=== PATIENT | female | born 1955 | race Caucasian/White ===

== ENCOUNTER 2016-12-11 20:26 | Emergency (ER) | payer MEDICARE, OTHER ==
[~2016-12-11] VITALS: Ht 167.6 cm; Wt 63.6 kg
[~2016-12-11 20:26] MED LIST: ALAVERT10 M1 PO; ALEVE 220MG220 MG PO; AMITRIPTYLINE25 MG PO; ANORO IH; ATIVAN 0.50.5 MG/TAB PO; ATIVAN0.5 MG PO; ATIVAN2 MG PO; ATROVENT INHALE14 GM IH; BACLOFEN20 MG PO; BENADRYL25 M2; BENADRYL25 M2 PO; BUPIVACAINE HCL IT; CARVEDILOL25 MG PO; COMBIVENT INH14.7 GM IH; COREG 25MG25 MG/TAB PO; COREG 3.123.125 MG/T PO; COREG12.5 MG PO; COREG25 MG PO; DEPAKOTE 125MG125 MG PO; DOXYCYCLINE 10100 MG PO; EFFEXOR 75M75 MG/TAB PO; EFFEXOR XR37.5 MG PO; EFFEXOR XR75 MG/CAP PO; FLAGYL500 MG PO; FOLIC ACID 11 MG/TA1 PO; FORADIL AERO0.012 MG IH; GABAPENTIN300 MG PO; GABAPENTIN600 MG PO; GEODON 20M20 MG/VIAL IM; HALDOL 2MG T2 MG/TAB PO; HCTZ 25MG25 MG PO; HCTZ PO; HYGROTON25 MG PO; IPRATROPIUM BROM3 M1 IH; K-DUR 2020 MEQ PO; K-LOR CON PO; K-TAB20 PO; KEPPRA 500MG500 MG PO; KLOR-CON M2020 MEQ PO; LEVAQUIN 5500 MG/TA1 PO; LEVAQUIN 750MG750 M1 PO; LIORESAL 1010 MG/TAB PO; LIORESAL I500 MCG/ML IT; LISINOPRIL10 MG PO; LISINOPRIL20 MG PO; LORTAB 5/500 501 TAB PO; MAALOX MAX + ANT1 ML PO; MACRODANTIN100 PO; MAG-OX 400400 MG/TAB PO; MAGOX 400241.3 MG PO; MELAT3MGTAB; MILK OF MA400 MG/51 PO; MORP4 IT; MORPHINE PO; MORPHINE10 MG PO; MS CONTIN 330 MG/TAB PO; MS CONTIN15 MG PO; MYLANTA 150 ML150 M1 PO; NAPROSYN500 MG PO; NATURAL IRON65 MG PO; NEURONTIN300 MG/CAP PO; NEURONTIN600 MG/TAB PO; NEURONTIN800 MG/TAB PO; NICODERM C21 MG/PATC TD; NICODERM21 MG/24 H TD; NORCO 325 MG-51 TAB PO; NORCO 325 MG-7.1 TAB PO; NYSTATIN OR100 MU/ML PO; OXYCODONE HCL10 MG PO; OXYCODONE10 MG PO; OXYCODONE5 MG PO; PEPCID 20MG TAB20 MG PO; PERCOCET 325 MG1 TA2 PO; PERFOROMIS20 MCG/2 M IH; PREDNISONE20 MG PO; PREMARIN 0.9MG0.9 MG PO; PREMARIN0.3 MG PO; PREMARIN0.9 MG PO; PULMICORT0.5 MG/2 M IH; RISPERDAL 1M1 MG/TAB PO; ROXICODONE5 MG PO; RT SPIRIVA18 MCG IH; SEE INSTRUCTIONS IT; SEROQUEL 1100 MG/TAB PO; SIMVASTATIN20 MG PO; SINGULAIR10 MG PO; THERAGRAN TAB1 UDTAB PO; THIAMINE 1100 MG/TAB PO; TYLENOL 325MG325 MG PO; ULTRAM 50MG TAB50 MG PO; UNABLE; VALIUM 5MG T5 MG/TAB PO; VITAMIN C500 MG PO; ZESTRIL10 MG PO; ZOCOR 20MG20 MG PO; ZOCOR20 MG PO
[2016-12-11 20:35] VITALS: TEMP 98.2
[2016-12-11] MEDS ORDERED: DOXYCYCLINE 10100 MG PO (21:10)
[2016-12-11 21:37] VITALS: BP 116/83; PULSE 86
== END 2016-12-11 21:37 | disposition home or self-care (01) ==
LOC: COL.ER 20:26
DX: S81.812A Laceration without foreign body, left lower leg, initial encounter (principal); Z23 Encounter for immunization; W22.8XXA Striking against or struck by other objects, initial encounter; W07.XXXA Fall from chair, initial encounter; I10 Essential (primary) hypertension; J44.9 Chronic obstructive pulmonary disease, unspecified; F10.20 Alcohol dependence, uncomplicated

== ENCOUNTER → 2017-01-05 | Outpatient (CLI) | payer MEDICARE, OTHER | LOC: BHSO 13:41 | DX: F31.74 Bipolar disorder, in full remission, most recent episode manic (principal) ==

== ENCOUNTER → 2017-06-20 | Outpatient (CLI) | payer MEDICARE, OTHER | LOC: BHSO 11:00 | DX: F31.73 Bipolar disorder, in partial remission, most recent episode manic (principal) ==

== ENCOUNTER → 2017-07-27 | Outpatient (CLI) | payer MEDICARE, OTHER | LOC: MC.RAD 10:49 | DX: Z12.31 Encounter for screening mammogram for malignant neoplasm of breast (principal) ==

== ENCOUNTER 2017-12-07 08:15 | Outpatient (RCR) | payer MEDICARE, OTHER | END 2017-12-12 | disposition home or self-care (01) | LOC: MKS.ESL.PT | DX: R53.81 Other malaise (principal); M54.12 Radiculopathy, cervical region | CPT/HCPCS: G8978-GP; G8979-GP ==

== ENCOUNTER 2017-12-21 02:12 | Inpatient (IN) | payer MEDICARE ==
[2017-12-21] VITALS (7 sets, daily range): BP systolic 102–181; BP diastolic 56–84; PULSE 58–113; TEMP 97.9–99.3
[~2017-12-21] VITALS: Ht 165.1 cm; Wt 51.4 kg
[2017-12-21 02:44] LABS: ARTERIAL BLD GAS O2 SATURATION 91.1 % (92-100); ARTERIAL BLD GAS TCO2 CT 31.8; ARTERIAL BLOOD GAS BASE EXCESS 5.5 (-2-2); ARTERIAL BLOOD GAS HCO3 30.4 meq/L (22-26); ARTERIAL BLOOD GAS PCO2 46.5 mmHg (35-45); ARTERIAL BLOOD GAS pH 7.43 (7.35-7.45)
[2017-12-21 02:45] LABS: MEAN CELL VOLUME 100 fl (80.0-100.0); MEAN CORPUSCULAR HGB CONC 32 g/dl (33.0-37.0); MEAN PLATELET VOLUME 10.4 fl (7.4-10.4); PLATELET COUNT 180 K/mm3 (130-400); RED BLOOD COUNT 2.61 M/mm3 (4.10-5.30); REDCELL DISTRIBUTION WIDTH-CV 12.8 % (11.5-14.5)
[2017-12-21 02:46] LABS: HEMATOCRIT 26.2 % (37.0-47.0); HEMOGLOBIN 8.3 g/dl (12.5-16.0); MEAN CORPUSCULAR HEMOGLOBIN 32 pg (27.0-31.0)
[2017-12-21 02:53] LABS: ALBUMIN 3.3 gm/dL (3.5-5.0); BILIRUBIN,TOTAL 0.4 mg/dL (0.0-1.0); CALCIUM 9.9 mg/dL (8.4-10.2); CREATININE, serum 0.43 mg/dL (0.52-1.25); POTASSIUM 3.7 mmol/L (3.4-5.0); TOTAL PROTEIN 6.3 gm/dL (6.4-8.2)
[2017-12-21 03:01] LABS: BAND 39 % (0-10); LYMPHOCYTE 7 % (20.0-51.0); METAMYELOCYTE 1 % (0-0); NEUTROPHILS 52 % (42.0-75.2); PLATELET ESTIMATE NORMAL (NORMAL)
[2017-12-21 03:26] LABS: COLLECTION METHOD CLEAN CATCH
[2017-12-21 03:33] LABS: AMORPHOUS CRYSTAL Present /uL; PH 8 (5-8); SQUAMOUS EPITHELIAL 0-2 /hpf; URINE APPEARANCE Cloudy; URINE BACTERIA Rare /hpf; URINE BILIRUBIN Negative (NEGATIVE); URINE BLOOD Negative (NEGATIVE); URINE COLOR Yellow; URINE GLUCOSE Negative (NEGATIVE); URINE KETONE Negative (NEGATIVE); URINE LEUKOCYTE ESTERASE Negative (NEGATIVE); URINE NITRATE Negative (NEGATIVE); URINE PROTEIN(semi-quant) Negative (NEGATIVE); URINE RBC 0-2 /hpf; URINE UROBILINOGEN Negative (NEGATIVE)
[2017-12-22 00:52] LABS: FOLATE (FOLIC ACID) 18.2 ng/mL (7.0-31.4)
[2017-12-22 04:03] VITALS: BP 104/60; PULSE 90; TEMP 98.2
[2017-12-22 07:04] LABS: MEAN CELL VOLUME 100 fl (80.0-100.0); MEAN CORPUSCULAR HGB CONC 31 g/dl (33.0-37.0); MEAN PLATELET VOLUME 10.3 fl (7.4-10.4); PLATELET COUNT 168 K/mm3 (130-400); RED BLOOD COUNT 2.41 M/mm3 (4.10-5.30)
[2017-12-22 07:09] LABS: HEMOGLOBIN 7.5 g/dl (12.5-16.0); MEAN CORPUSCULAR HEMOGLOBIN 31 pg (27.0-31.0)
[2017-12-22 07:16] LABS: BILIRUBIN,TOTAL 0.3 mg/dL (0.0-1.0); CALCIUM 9.8 mg/dL (8.4-10.2); CREATININE, serum 0.36 mg/dL (0.52-1.25); POTASSIUM 3.9 mmol/L (3.4-5.0); TOTAL PROTEIN 5.6 gm/dL (6.4-8.2)
[2017-12-22 07:42] LABS: BAND 38 % (0-10); DOHLE BODIES PRESENT; HYPOCHROMIA 2+; LYMPHOCYTE 11 % (20.0-51.0); METAMYELOCYTE 1 % (0-0); NEUTROPHILS 49 % (42.0-75.2); PLATELET ESTIMATE NORMAL (NORMAL)
[2017-12-22 07:43] LABS: TOXIC GRANULATION PRESENT
[2017-12-22 08:10] VITALS: BP 109/64; PULSE 92; TEMP 98.3
[2017-12-22 11:20] LABS: LACTATE DEHYDROGENASE 390 U/L (313-618)
[2017-12-22 11:32] VITALS: BP 119/74; PULSE 99; TEMP 98.8
[2017-12-22 15:28] VITALS: BP 138/71; PULSE 97; TEMP 99
[2017-12-22 18:55] VITALS: BP 154/87; PULSE 103; TEMP 98.5
[2017-12-22 23:40] VITALS: BP 105/55; PULSE 85; TEMP 98
[2017-12-23 03:52] VITALS: BP 96/60; PULSE 87; TEMP 97.6
[2017-12-23 06:29] LABS: MEAN CELL VOLUME 101 fl (80.0-100.0); MEAN CORPUSCULAR HGB CONC 31 g/dl (33.0-37.0); MEAN PLATELET VOLUME 10.4 fl (7.4-10.4); PLATELET COUNT 183 K/mm3 (130-400); RED BLOOD COUNT 2.51 M/mm3 (4.10-5.30); REDCELL DISTRIBUTION WIDTH-CV 13.3 % (11.5-14.5)
[2017-12-23 06:37] LABS: HEMATOCRIT 25.3 % (37.0-47.0); HEMOGLOBIN 7.9 g/dl (12.5-16.0); MEAN CORPUSCULAR HEMOGLOBIN 31 pg (27.0-31.0)
[2017-12-23 06:44] LABS: CALCIUM 10.2 mg/dL (8.4-10.2); CREATININE, serum 0.39 mg/dL (0.52-1.25); POTASSIUM 3.9 mmol/L (3.4-5.0)
[2017-12-23 07:26] LABS: INR 1.1 (0.8-3.0); PROTHROMBIN TIME 12.1 SECONDS (9.7-12.8)
[2017-12-23 07:41] LABS: BAND 33 % (0-10); BASOPHIL 1 % (0-2); LYMPHOCYTE 21 % (20.0-51.0); NEUTROPHILS 40 % (42.0-75.2); PLATELET ESTIMATE NORMAL (NORMAL)
[2017-12-23 07:42] LABS: METAMYELOCYTE 3 % (0-0)
[2017-12-23 07:43] LABS: TOXIC GRANULATION PRESENT
[2017-12-23 07:50] VITALS: BP 107/69; PULSE 85; TEMP 97.7
[2017-12-23 10:59] LABS: GLUCOSE,PLEURAL FLUID 97 mg/dL; TOTAL PROTEIN,PLEURAL FLUID 2.7 gm/dL
[2017-12-23 11:10] LABS: PLEURAL FLUID RBC 4000 /mm3 (0-0); PLEURAL FLUID WBC 1484 /mm3
[2017-12-23 11:12] LABS: PLEURAL FLUID APPEARANCE HAZY; PLEURAL FLUID COLOR YELLOW
[2017-12-23 11:42] VITALS: BP 113/63; PULSE 104; TEMP 97.8
[2017-12-23 16:00] VITALS: BP 116/75; PULSE 102; TEMP 99
[2017-12-23 19:00] VITALS: BP 134/73; PULSE 99; TEMP 98.8
[2017-12-24 00:16] VITALS: BP 103/59; PULSE 92; TEMP 98.6
[2017-12-24 04:17] VITALS: BP 97/56; PULSE 78; TEMP 97.9
[2017-12-24 07:00] LABS: MEAN CELL VOLUME 102 fl (80.0-100.0); MEAN CORPUSCULAR HGB CONC 31 g/dl (33.0-37.0); MEAN PLATELET VOLUME 10.5 fl (7.4-10.4); PLATELET COUNT 201 K/mm3 (130-400); RED BLOOD COUNT 2.77 M/mm3 (4.10-5.30); REDCELL DISTRIBUTION WIDTH-CV 13.7 % (11.5-14.5)
[2017-12-24 07:02] LABS: HEMATOCRIT 28.2 % (37.0-47.0); HEMOGLOBIN 8.8 g/dl (12.5-16.0); MEAN CORPUSCULAR HEMOGLOBIN 32 pg (27.0-31.0)
[2017-12-24 07:18] LABS: CALCIUM 10.2 mg/dL (8.4-10.2); CREATININE, serum 0.46 mg/dL (0.52-1.25); POTASSIUM 3.9 mmol/L (3.4-5.0)
[2017-12-24 08:01] VITALS: BP 121/69; PULSE 100; TEMP 98.2
[2017-12-24 09:48] LABS: BAND 28 % (0-10); EOSINOPHIL 1 % (0-4); LYMPHOCYTE 19 % (20.0-51.0); NEUTROPHILS 42 % (42.0-75.2); TOXIC GRANULATION PRESENT
[2017-12-24 09:50] LABS: PLATELET ESTIMATE NORMAL (NORMAL)
[2017-12-24 11:53] VITALS: BP 110/63; PULSE 91; TEMP 98.5
[2017-12-24] MEDS ORDERED: LEVAQUIN 5500 MG/TA1 PO (12:15)
== END 2017-12-24 15:25 | disposition home health service (06) | DRG 871 ==
LOC: COL.ER 02:12 → MEDICAL 03:19
PROVIDERS: Family Medicine; Internal Medicine Pulmonary Disease; Nurse Practitioner Family; Physician Assistant
PROC: 0W9B3ZX Drainage of Left Pleural Cavity, Percutaneous Approach, Diagnostic (ICD-10-PCS; principal; 2017-12-23)
DX: A41.9 Sepsis, unspecified organism (principal); J18.9 Pneumonia, unspecified organism; J96.22 Acute and chronic respiratory failure with hypercapnia; J44.0 Chronic obstructive pulmonary disease with (acute) lower respiratory infection; J44.1 Chronic obstructive pulmonary disease with (acute) exacerbation; C34.11 Malignant neoplasm of upper lobe, right bronchus or lung; R64 Cachexia; Z68.1 Body mass index [BMI] 19.9 or less, adult; J90 Pleural effusion, not elsewhere classified; I10 Essential (primary) hypertension; Z87.891 Personal history of nicotine dependence
CPT/HCPCS: 99232-AI; 99233-AI; 99239; G0378; G8978-GP; G8979-GP; G8987-GO; G8988-GO; J1650; J2185; J3370; J7030; J7050

== ENCOUNTER → 2018-01-20 | Outpatient (CLI) | payer MEDICARE ==
[~2018-01-20] MED LIST changes: +DUO-KAPS1 CAP PO; +OMNICEF 300MG300 MG PO; +PROAIR HFA0.09 MG/AC IH
== END ==
LOC: COL.LAB 12:50
DX: Z01.89 Encounter for other specified special examinations (principal)

== ENCOUNTER 2018-01-21 10:02 | Outpatient (RCR) | payer MEDICARE ==
[2018-01-21] VITALS (12 sets, daily range): BP systolic 106–131; BP diastolic 60–79; PULSE 81–98; TEMP 98–98.2
== END 2018-01-21 18:00 | disposition home or self-care (01) ==
LOC: EUO 18:00
DX: C34.32 Malignant neoplasm of lower lobe, left bronchus or lung (principal)
CPT/HCPCS: J7050; P9016

== ENCOUNTER 2018-01-24 16:38 | Emergency (ER) | payer MEDICARE, OTHER ==
[~2018-01-24] VITALS: Ht 165.1 cm; Wt 50.0 kg
[2018-01-24 16:43] VITALS: TEMP 99.3
[2018-01-24 17:07] LABS: HEMOGLOBIN 10.7 g/dl (12.5-16.0); MEAN CELL VOLUME 95 fl (80.0-100.0); MEAN CORPUSCULAR HEMOGLOBIN 30 pg (27.0-31.0); MEAN CORPUSCULAR HGB CONC 32 g/dl (33.0-37.0); MEAN PLATELET VOLUME 9.2 fl (7.4-10.4); PLATELET COUNT 242 K/mm3 (130-400); RED BLOOD COUNT 3.55 M/mm3 (4.10-5.30); REDCELL DISTRIBUTION WIDTH-CV 14.2 % (11.5-14.5)
[2018-01-24 17:21] LABS: ALBUMIN 3.7 gm/dL (3.5-5.0); BILIRUBIN,TOTAL 0.1 mg/dL (0.0-1.0); CREATININE, serum 0.5 mg/dL (0.52-1.25); POTASSIUM 4.9 mmol/L (3.4-5.0); TOTAL PROTEIN 6.7 gm/dL (6.4-8.2)
[2018-01-24 17:28] LABS: HEMATOCRIT 33.8 % (37.0-47.0)
[2018-01-24 17:42] LABS: ANISOCYTOSIS 1+; LYMPHOCYTE 2 % (20.0-51.0); NEUTROPHILS 98 % (42.0-75.2); PLATELET ESTIMATE NORMAL (NORMAL)
[2018-01-24 17:53] VITALS: BP 105/78; PULSE 104
== END 2018-01-24 18:23 | disposition home or self-care (01) ==
LOC: COL.ER 16:38
PROVIDERS: Family Medicine
DX: R91.8 Other nonspecific abnormal finding of lung field (principal); J44.9 Chronic obstructive pulmonary disease, unspecified; C34.90 Malignant neoplasm of unspecified part of unspecified bronchus or lung; Z87.891 Personal history of nicotine dependence

== ENCOUNTER → 2018-01-31 | Outpatient (CLI) | payer MEDICARE, OTHER | LOC: BHSO 11:16 | DX: F31.81 Bipolar II disorder (principal) ==

== ENCOUNTER 2018-02-15 17:39 | Observation (INO) | payer MEDICARE, OTHER ==
[~2018-02-15] VITALS: Ht 165.1 cm; Wt 54.7 kg
[2018-02-15] MEDS ORDERED: PREDNISONE10 MG PO (17:56)
[2018-02-15 18:25] LABS: BASO % 0.1 % (0.0-2.0); GRAN # 10.5 (1.4-6.5); GRAN % 92.5 % (42.2-75.2); LYMPH # 0.2 (1.2-3.4); LYMPH % 1.9 % (20.0-51.0); MEAN CELL VOLUME 99 fl (80.0-100.0); MEAN CORPUSCULAR HGB CONC 32 g/dl (33.0-37.0); MONO # 0.5 (0.1-0.6); MONO % 4.8 % (1.7-9.3); PLATELET COUNT 243 K/mm3 (130-400); RED BLOOD COUNT 2.76 M/mm3 (4.10-5.30); REDCELL DISTRIBUTION WIDTH-CV 17.7 % (11.5-14.5)
[2018-02-15 18:27] LABS: ALANINE AMINOTRANSFERASE 20 U/L (9-52); ALBUMIN 3.3 gm/dL (3.5-5.0); ALKALINE PHOSPHATASE 64 U/L (50-136); ANION GAP 8 mmol/L (7-16); AST,SGOT 19 U/L (15-37); BILIRUBIN,TOTAL 0.2 mg/dL (0.0-1.0); BLOOD UREA NITROGEN 21 mg/dL (7-17); CALCIUM 9.6 mg/dL (8.4-10.2); CARBON DIOXIDE 35 mmol/L (22-30); CHLORIDE 93 mmol/L (98-107); CREATININE, serum 0.43 mg/dL (0.52-1.25); GLUCOSE 110 mg/dL (74-106); POTASSIUM 4.6 mmol/L (3.4-5.0); PROTHROMBIN TIME 11.1 SECONDS (9.7-12.8); SODIUM 136 mmol/L (137-145); TOTAL PROTEIN 6.1 gm/dL (6.4-8.2)
[2018-02-15 18:29] LABS: HEMATOCRIT 27.2 % (37.0-47.0); HEMOGLOBIN 8.7 g/dl (12.5-16.0); MEAN CORPUSCULAR HEMOGLOBIN 32 pg (27.0-31.0)
[2018-02-15 18:40] LABS: TROPONIN-I < 0.012 ng/mL (0.000-0.034)
[2018-02-15 18:43] LABS: ARTERIAL BLD GAS TCO2 CT 36.3; ARTERIAL BLOOD GAS BASE EXCESS 8.8 (-2-2); ARTERIAL BLOOD GAS HCO3 34.7 meq/L (22-26); ARTERIAL BLOOD GAS PCO2 54.9 mmHg (35-45); ARTERIAL BLOOD GAS PO2 75.6 mmHg (80-100); ARTERIAL BLOOD GAS pH 7.42 (7.35-7.45)
[2018-02-15 19:26] LABS: COLLECTION METHOD CLEAN CATCH
[2018-02-15 19:33] LABS: PH 7 (5-8); SQUAMOUS EPITHELIAL 0-2 /hpf; URINE APPEARANCE Clear; URINE BACTERIA None Seen /hpf; URINE BILIRUBIN Negative (NEGATIVE); URINE BLOOD Negative (NEGATIVE); URINE COLOR Straw; URINE GLUCOSE Negative (NEGATIVE); URINE KETONE Negative (NEGATIVE); URINE LEUKOCYTE ESTERASE Negative (NEGATIVE); URINE NITRATE Negative (NEGATIVE); URINE PROTEIN(semi-quant) Negative (NEGATIVE); URINE RBC 0-2 /hpf; URINE UROBILINOGEN Negative (NEGATIVE)
[2018-02-15 20:30] VITALS: BP 115/77; PULSE 85; TEMP 98.3
[2018-02-15] MEDS ORDERED: ZITHROMAX 250M250 MG (20:56)
[2018-02-15] MEDS ORDERED: ZITHROMAX 250M250 MG PO (20:59)
[2018-02-15 21:17] VITALS: BP 115/77; PULSE 85; TEMP 98.3
[2018-02-16] VITALS: BP 111/66; PULSE 103; TEMP 97.5
[2018-02-16 04:00] VITALS: BP 124/65; PULSE 95; TEMP 98
[2018-02-16 06:56] VITALS: BP 125/70; PULSE 90; TEMP 98.4
[2018-02-16 07:28] LABS: BASO % 0.1 % (0.0-2.0); GRAN # 6.1 (1.4-6.5); GRAN % 87.3 % (42.2-75.2); LYMPH # 0.5 (1.2-3.4); LYMPH % 6.6 % (20.0-51.0); MEAN CELL VOLUME 100 fl (80.0-100.0); MEAN CORPUSCULAR HGB CONC 31 g/dl (33.0-37.0); MEAN PLATELET VOLUME 9.2 fl (7.4-10.4); MONO # 0.4 (0.1-0.6); MONO % 5.3 % (1.7-9.3); PLATELET COUNT 225 K/mm3 (130-400); RED BLOOD COUNT 2.75 M/mm3 (4.10-5.30); REDCELL DISTRIBUTION WIDTH-CV 18.1 % (11.5-14.5)
[2018-02-16 07:29] LABS: CALCIUM 9.7 mg/dL (8.4-10.2); CREATININE, serum 0.37 mg/dL (0.52-1.25)
[2018-02-16 07:35] LABS: HEMATOCRIT 27.5 % (37.0-47.0); HEMOGLOBIN 8.6 g/dl (12.5-16.0); MEAN CORPUSCULAR HEMOGLOBIN 31 pg (27.0-31.0)
[2018-02-16 11:30] VITALS: BP 106/60; PULSE 60; TEMP 98.6
[2018-02-16 15:39] LABS: PROCALCITONIN 0.02 ng/mL (0.00-0.09)
[2018-02-18 00:38] LABS: MYCOPLASMA IGM ANTIBODIES 0.18 (0.00-0.90)
== END 2018-02-16 12:49 | disposition home or self-care (01) ==
LOC: COL.ER 17:39 → MEDICAL 19:32
PROVIDERS: Emergency Medicine; Nurse Practitioner
DX: J44.9 Chronic obstructive pulmonary disease, unspecified (principal); I10 Essential (primary) hypertension; G40.909 Epilepsy, unspecified, not intractable, without status epilepticus; F10.10 Alcohol abuse, uncomplicated; G89.29 Other chronic pain; T17.900A Unspecified foreign body in respiratory tract, part unspecified causing asphyxiation, initial encounter; I25.2 Old myocardial infarction; Z99.81 Dependence on supplemental oxygen; Z96.619 Presence of unspecified artificial shoulder joint; Z88.1 Allergy status to other antibiotic agents; Z87.891 Personal history of nicotine dependence; Z85.118 Personal history of other malignant neoplasm of bronchus and lung; Z90.49 Acquired absence of other specified parts of digestive tract; Z90.710 Acquired absence of both cervix and uterus; Z85.828 Personal history of other malignant neoplasm of skin; Z80.8 Family history of malignant neoplasm of other organs or systems
CPT/HCPCS: G0378; J1650; J1940; J7512

== ENCOUNTER 2018-02-22 00:34 | Inpatient (IN) | payer MEDICARE ==
[~2018-02-22] VITALS: Ht 165.1 cm; Wt 53.3 kg
[2018-02-22] VITALS (298 sets, daily range): BP systolic 98–145; BP diastolic 61–89; PULSE 105–124; TEMP 97–99.3; O2SAT 76–100
[~2018-02-22 00:34] MED LIST changes: +PREDNISONE10 MG PO; +ZITHROMAX 250M250 MG; +ZITHROMAX 250M250 MG PO
[2018-02-22 01:03] LABS: MEAN CELL VOLUME 99 fl (80.0-100.0); MEAN CORPUSCULAR HGB CONC 32 g/dl (33.0-37.0); MEAN PLATELET VOLUME 9.7 fl (7.4-10.4); PLATELET COUNT 102 K/mm3 (130-400); RED BLOOD COUNT 2.23 M/mm3 (4.10-5.30)
[2018-02-22 01:04] LABS: HEMOGLOBIN 7.1 g/dl (12.5-16.0); MEAN CORPUSCULAR HEMOGLOBIN 32 pg (27.0-31.0)
[2018-02-22 01:15] LABS: ALANINE AMINOTRANSFERASE 21 U/L (9-52); ALBUMIN 3.2 gm/dL (3.5-5.0); ALKALINE PHOSPHATASE 80 U/L (50-136); ANION GAP 7 mmol/L (7-16); AST,SGOT 15 U/L (15-37); BILIRUBIN,TOTAL 0.3 mg/dL (0.0-1.0); BLOOD UREA NITROGEN 8 mg/dL (7-17); C-REACTIVE PROTEIN 3.9 mg/dL (0.0-0.9); CALCIUM 9.5 mg/dL (8.4-10.2); CARBON DIOXIDE 34 mmol/L (22-30); CHLORIDE 91 mmol/L (98-107); GLUCOSE 116 mg/dL (74-106); MAGNESIUM 1.3 mg/dL (1.6-2.3); PHOSPHOROUS 3.8 mg/dL (2.5-4.5); POTASSIUM 3.8 mmol/L (3.4-5.0); SODIUM 132 mmol/L (137-145); TOTAL PROTEIN 5.8 gm/dL (6.4-8.2)
[2018-02-22 01:18] LABS: BAND 56 % (0-10); LYMPHOCYTE 7 % (20.0-51.0); NEUTROPHILS 27 % (42.0-75.2)
[2018-02-22 01:19] LABS: PLATELET ESTIMATE NORMAL (NORMAL)
[2018-02-22 01:20] LABS: HYPOCHROMIA 1+
[2018-02-22 01:22] LABS: ANISOCYTOSIS 1+
[2018-02-22 01:24] LABS: TROPONIN-I < 0.012 ng/mL (0.000-0.034)
[2018-02-22 01:43] LABS: COLLECTION METHOD CLEAN CATCH
[2018-02-22 01:48] LABS: MUCOUS Present /lpf; PH 8 (5-8); SQUAMOUS EPITHELIAL None Seen /hpf; URINE APPEARANCE Hazy; URINE BACTERIA None Seen /hpf; URINE BILIRUBIN Negative (NEGATIVE); URINE BLOOD Negative (NEGATIVE); URINE COLOR Yellow; URINE GLUCOSE Negative (NEGATIVE); URINE KETONE Negative (NEGATIVE); URINE LEUKOCYTE ESTERASE Negative (NEGATIVE); URINE NITRATE Negative (NEGATIVE); URINE PROTEIN(semi-quant) Negative (NEGATIVE); URINE RBC 0-2 /hpf; URINE UROBILINOGEN Negative (NEGATIVE)
[2018-02-22 05:46] LABS: MEAN CELL VOLUME 100 fl (80.0-100.0); MEAN CORPUSCULAR HGB CONC 32 g/dl (33.0-37.0); MEAN PLATELET VOLUME 10.1 fl (7.4-10.4); PLATELET COUNT 99 K/mm3 (130-400); RED BLOOD COUNT 2.14 M/mm3 (4.10-5.30); REDCELL DISTRIBUTION WIDTH-CV 18.1 % (11.5-14.5)
[2018-02-22 05:57] LABS: HEMATOCRIT 21.4 % (37.0-47.0); MEAN CORPUSCULAR HEMOGLOBIN 32 pg (27.0-31.0)
[2018-02-22 05:58] LABS: HEMOGLOBIN 6.8 g/dl (12.5-16.0)
[2018-02-22 06:00] LABS: CALCIUM 9.3 mg/dL (8.4-10.2); CREATININE, serum 0.38 mg/dL (0.52-1.25); MAGNESIUM 1.5 mg/dL (1.6-2.3); POTASSIUM 3.9 mmol/L (3.4-5.0)
[2018-02-22 06:11] LABS: ANISOCYTOSIS 1+; BAND 51 % (0-10); HYPOCHROMIA 1+; LYMPHOCYTE 10 % (20.0-51.0); NEUTROPHILS 30 % (42.0-75.2); PLATELET ESTIMATE NORMAL (NORMAL)
[2018-02-22 13:29] LABS: HEMATOCRIT 23.3 % (37.0-47.0); HEMOGLOBIN 7.6 g/dl (12.5-16.0)
[2018-02-22 17:53] LABS: FOLATE (FOLIC ACID) 19.1 ng/mL (7.0-31.4)
[2018-02-23] VITALS (7 sets, daily range): BP systolic 91–144; BP diastolic 59–76; PULSE 95–120; TEMP 97.6–98.2
[2018-02-23 07:16] LABS: MEAN CORPUSCULAR HGB CONC 33 g/dl (33.0-37.0); MEAN PLATELET VOLUME 9.8 fl (7.4-10.4); PLATELET COUNT 97 K/mm3 (130-400); RED BLOOD COUNT 2.63 M/mm3 (4.10-5.30); REDCELL DISTRIBUTION WIDTH-CV 20.1 % (11.5-14.5)
[2018-02-23 07:18] LABS: HEMATOCRIT 24.6 % (37.0-47.0); HEMOGLOBIN 8.1 g/dl (12.5-16.0); MEAN CELL VOLUME 94 fl (80.0-100.0); MEAN CORPUSCULAR HEMOGLOBIN 31 pg (27.0-31.0)
[2018-02-23 07:26] LABS: BAND 41 % (0-10); LYMPHOCYTE 12 % (20.0-51.0); NEUTROPHILS 37 % (42.0-75.2)
[2018-02-23 07:27] LABS: HYPOCHROMIA 1+; PLATELET ESTIMATE DECREASED (NORMAL)
[2018-02-23 07:28] LABS: ANISOCYTOSIS 1+
[2018-02-23 07:30] LABS: CALCIUM 9.5 mg/dL (8.4-10.2); CREATININE, serum 0.34 mg/dL (0.52-1.25); MAGNESIUM 1.4 mg/dL (1.6-2.3); POTASSIUM 3.7 mmol/L (3.4-5.0)
[2018-02-24 03:17] VITALS: BP 99/64; PULSE 84; TEMP 98.1
[2018-02-24 08:30] VITALS: BP 120/60; PULSE 102; TEMP 98.4
[2018-02-24 12:30] VITALS: BP 123/63; PULSE 63; TEMP 97.4
[2018-02-24 17:15] VITALS: BP 114/68; PULSE 115; TEMP 98.5
[2018-02-24 20:16] VITALS: BP 130/74; PULSE 101; TEMP 98.4
[2018-02-24 23:36] VITALS: BP 122/73; PULSE 96; TEMP 97.6
[2018-02-25 02:52] VITALS: BP 127/74; PULSE 95; TEMP 97.4
[2018-02-25 07:19] VITALS: BP 132/79; PULSE 111; TEMP 98.8
[2018-02-25 10:23] LABS: MEAN CELL VOLUME 96 fl (80.0-100.0); MEAN CORPUSCULAR HGB CONC 32 g/dl (33.0-37.0); MEAN PLATELET VOLUME 9.8 fl (7.4-10.4); PLATELET COUNT 152 K/mm3 (130-400); RED BLOOD COUNT 2.63 M/mm3 (4.10-5.30); REDCELL DISTRIBUTION WIDTH-CV 19.5 % (11.5-14.5)
[2018-02-25 10:28] LABS: HEMATOCRIT 25.2 % (37.0-47.0); HEMOGLOBIN 8.1 g/dl (12.5-16.0); MEAN CORPUSCULAR HEMOGLOBIN 31 pg (27.0-31.0)
[2018-02-25 10:33] LABS: CALCIUM 9.8 mg/dL (8.4-10.2); CREATININE, serum 0.36 mg/dL (0.52-1.25); POTASSIUM 4.2 mmol/L (3.4-5.0)
[2018-02-25 11:17] VITALS: BP 114/62; PULSE 112; TEMP 98.8
[2018-02-25 11:38] LABS: ANISOCYTOSIS 3+; BAND 14 % (0-10); LYMPHOCYTE 4 % (20.0-51.0); NEUTROPHILS 77 % (42.0-75.2)
[2018-02-25 11:39] LABS: HYPOCHROMIA 1+; OVALOCYTES 1+; PLATELET ESTIMATE NORMAL (NORMAL)
[2018-02-25 15:07] VITALS: BP 126/69; PULSE 120; TEMP 98.5
[2018-02-25 20:24] VITALS: BP 131/80; PULSE 93; TEMP 98.8
[2018-02-25 23:29] VITALS: BP 107/56; PULSE 100; TEMP 98.3
[2018-02-26 04:02] VITALS: BP 107/56; PULSE 93; TEMP 98.5
[2018-02-26 07:48] VITALS: BP 134/74; PULSE 133; TEMP 98.6
[2018-02-26 12:03] VITALS: BP 135/73; PULSE 120; TEMP 98.6
[2018-02-26 16:30] VITALS: BP 141/75; PULSE 111; TEMP 98.8
[2018-02-26 20:00] VITALS: BP 117/69; PULSE 109; TEMP 98.9
[2018-02-27] VITALS (8 sets, daily range): BP systolic 100–149; BP diastolic 63–88; PULSE 106–121; TEMP 97.6–985
[2018-02-27 06:32] LABS: MEAN CELL VOLUME 98 fl (80.0-100.0); MEAN CORPUSCULAR HGB CONC 31 g/dl (33.0-37.0); MEAN PLATELET VOLUME 9.6 fl (7.4-10.4); PLATELET COUNT 168 K/mm3 (130-400); RED BLOOD COUNT 2.63 M/mm3 (4.10-5.30); REDCELL DISTRIBUTION WIDTH-CV 20.1 % (11.5-14.5)
[2018-02-27 06:43] LABS: HEMATOCRIT 25.8 % (37.0-47.0); HEMOGLOBIN 8.1 g/dl (12.5-16.0); MEAN CORPUSCULAR HEMOGLOBIN 31 pg (27.0-31.0)
[2018-02-27 07:35] LABS: BAND 16 % (0-10); LYMPHOCYTE 6 % (20.0-51.0); METAMYELOCYTE 3 % (0-0); NEUTROPHILS 73 % (42.0-75.2)
[2018-02-27 07:36] LABS: PLATELET ESTIMATE NORMAL (NORMAL); TOXIC GRANULATION PRESENT
[2018-02-27 07:37] LABS: DOHLE BODIES PRESENT; HYPOCHROMIA 2+
[2018-02-27 07:54] LABS: PATHOLOGY DIFF REVIEW OK +
[2018-02-27] MEDS ORDERED: LEVAQUIN 5500 MG/TA1 PO (12:58)
[2018-02-27] MEDS ORDERED: MAXIPIME1 GM IV (12:58)
[2018-02-27] MEDS ORDERED: PERFOROMIS20 MCG/2 M IH (12:58)
[2018-02-27] MEDS ORDERED: IPRATROPIUM BROM3 M1 IH ×2 (12:58)
[2018-02-27] MEDS ORDERED: Florastor PO (12:59)
[2018-02-27] MEDS ORDERED: PULMICORT R1 MG/2 ML IH (12:59)
[2018-02-27] MEDS ORDERED: TYLENOL 325MG325 MG PO (12:59)
[2018-02-27] MEDS ORDERED: MAGIC MOUTH PO (13:00)
[2018-02-27] MEDS ORDERED: PREDNISONE20 MG PO (13:00)
== END 2018-02-27 16:30 | DRG 871 ==
LOC: COL.ER 00:34 → SURG 02:09 → ICU 02:09 → SURG 21:54
PROVIDERS: Emergency Medicine; Hospitalist; Internal Medicine Pulmonary Disease; Nurse Practitioner Family; Physician Assistant
DX: A41.9 Sepsis, unspecified organism (principal); J96.21 Acute and chronic respiratory failure with hypoxia; J18.9 Pneumonia, unspecified organism; J44.0 Chronic obstructive pulmonary disease with (acute) lower respiratory infection; C34.12 Malignant neoplasm of upper lobe, left bronchus or lung; E87.1 Hypo-osmolality and hyponatremia; E44.0 Moderate protein-calorie malnutrition; Z68.1 Body mass index [BMI] 19.9 or less, adult; Z66 Do not resuscitate; Z87.891 Personal history of nicotine dependence; G89.29 Other chronic pain; E83.42 Hypomagnesemia; D64.9 Anemia, unspecified; D69.6 Thrombocytopenia, unspecified; I27.22 Pulmonary hypertension due to left heart disease; I07.1 Rheumatic tricuspid insufficiency
CPT/HCPCS: 99223-AI; 99233-AI; 99239; J0692; J1956; J2920; J3260; J3370; J3475; J7030; J7050; J7512; P9016

== ENCOUNTER → 2018-03-29 | Outpatient (REF) ==
[~2018-03-29] MED LIST changes: +ACIDOPHILIS PO; +DEPAKOTE 250MG250 MG PO; +FIRVANQ25 MG/1 ML PO; +Florastor PO; +KEPPRA250 MG PO; +KLONOPIN 0.5MG0.5 MG PO; +MAGIC MOUTH PO; +MAXIPIME1 GM IV; -MELAT3MGTAB; +MELAT3MGTAB PO; +MIRTAZAPINE7.5 MG PO; +MULTI VITAMINS1 TAB PO; +OXYGEN MC; +PULMICORT R1 MG/2 ML IH
== END ==
LOC: ZCOL.LAB 15:38
DX: A04.72 Enterocolitis due to Clostridium difficile, not specified as recurrent (principal)

== ENCOUNTER 2018-03-30 00:56 | Inpatient (IN) | payer MEDICARE, OTHER ==
[~2018-03-30] VITALS: Ht 165.1 cm; Wt 49.4 kg
[2018-03-30] VITALS (423 sets, daily range): BP systolic 97–122; BP diastolic 68–83; PULSE 73–96; TEMP 97.9–99.9; O2SAT 67–100
[~2018-03-30 00:56] MED LIST changes: -ACIDOPHILIS PO; -DEPAKOTE 250MG250 MG PO; -KEPPRA250 MG PO; -KLONOPIN 0.5MG0.5 MG PO; -MIRTAZAPINE7.5 MG PO; -MULTI VITAMINS1 TAB PO; -OXYGEN MC
[2018-03-30 01:20] LABS: BASO % 0.1 % (0.0-2.0); EOS # 0.1 (0.0-0.7); EOS % 0.6 % (0-4.0); GRAN # 12.7 (1.4-6.5); GRAN % 88.6 % (42.2-75.2); HEMOGLOBIN 10.1 g/dl (12.5-16.0); LYMPH # 0.6 (1.2-3.4); MEAN CELL VOLUME 101 fl (80.0-100.0); MEAN CORPUSCULAR HEMOGLOBIN 33 pg (27.0-31.0); MEAN CORPUSCULAR HGB CONC 32 g/dl (33.0-37.0); MEAN PLATELET VOLUME 10.2 fl (7.4-10.4); MONO # 0.9 (0.1-0.6); PLATELET COUNT 165 K/mm3 (130-400); RED BLOOD COUNT 3.09 M/mm3 (4.10-5.30); REDCELL DISTRIBUTION WIDTH-CV 14.8 % (11.5-14.5)
[2018-03-30 01:21] LABS: HEMATOCRIT 31.3 % (37.0-47.0)
[2018-03-30 01:31] LABS: ALBUMIN 3.5 gm/dL (3.5-5.0); BILIRUBIN,TOTAL 0.3 mg/dL (0.0-1.0); CALCIUM 10.1 mg/dL (8.4-10.2); CREATININE, serum 0.38 mg/dL (0.52-1.25); TOTAL PROTEIN 6.3 gm/dL (6.4-8.2)
[2018-03-30] MEDS ORDERED: ZITHROMAX 250M250 MG PO (02:37)
[2018-03-30] MEDS ORDERED: IPRATROPIUM BROM3 M1 IH (02:39)
[2018-03-30] MEDS ORDERED: KLONOPIN 0.5MG0.5 MG PO (02:39)
[2018-03-30] MEDS ORDERED: MULTI VITAMINS1 TAB PO (02:40)
[2018-03-30] MEDS ORDERED: MIRTAZAPINE7.5 MG PO (02:43)
[2018-03-30] MEDS ORDERED: DEPAKOTE 250MG250 MG PO (02:44)
[2018-03-30] MEDS ORDERED: NEURONTIN300 MG/CAP PO (02:53)
[2018-03-30] MEDS ORDERED: ACIDOPHILIS PO (02:57)
[2018-03-30] MEDS ORDERED: KEPPRA250 MG PO (02:58)
[2018-03-30] MEDS ORDERED: OXYGEN MC (03:01)
[2018-03-30 03:36] LABS: ARTERIAL BLD GAS O2 SATURATION 96.4 % (92-100); ARTERIAL BLOOD GAS BASE EXCESS 5.9 (-2-2); ARTERIAL BLOOD GAS HCO3 32.3 meq/L (22-26); ARTERIAL BLOOD GAS PO2 100.3 mmHg (80-100); ARTERIAL BLOOD GAS pH 7.36 (7.35-7.45)
[2018-03-31] VITALS (678 sets, daily range): BP systolic 78–139; BP diastolic 50–90; PULSE 78–98; TEMP 97.5–98.5; O2SAT 62–100
[2018-03-31 05:58] LABS: BASO % 0.5 % (0.0-2.0); EOS # 0.1 (0.0-0.7); EOS % 2.7 % (0-4.0); GRAN # 3.4 (1.4-6.5); GRAN % 77.7 % (42.2-75.2); LYMPH # 0.5 (1.2-3.4); LYMPH % 10.7 % (20.0-51.0); MEAN CELL VOLUME 105 fl (80.0-100.0); MEAN CORPUSCULAR HGB CONC 31 g/dl (33.0-37.0); MEAN PLATELET VOLUME 10.1 fl (7.4-10.4); MONO # 0.4 (0.1-0.6); MONO % 7.9 % (1.7-9.3); PLATELET COUNT 136 K/mm3 (130-400); RED BLOOD COUNT 2.76 M/mm3 (4.10-5.30); REDCELL DISTRIBUTION WIDTH-CV 14.5 % (11.5-14.5)
[2018-03-31 06:00] LABS: HEMATOCRIT 28.9 % (37.0-47.0); MEAN CORPUSCULAR HEMOGLOBIN 33 pg (27.0-31.0)
[2018-03-31 06:14] LABS: CALCIUM 9.4 mg/dL (8.4-10.2); CREATININE, serum 0.33 mg/dL (0.52-1.25); POTASSIUM 3.4 mmol/L (3.4-5.0)
[2018-03-31 12:27] LABS: ARTERIAL BLD GAS O2 SATURATION 88.1 % (92-100); ARTERIAL BLD GAS TCO2 CT 30.7; ARTERIAL BLOOD GAS BASE EXCESS 2.9 (-2-2); ARTERIAL BLOOD GAS HCO3 29.1 meq/L (22-26); ARTERIAL BLOOD GAS PCO2 52.4 mmHg (35-45); ARTERIAL BLOOD GAS PO2 58.6 mmHg (80-100); ARTERIAL BLOOD GAS pH 7.36 (7.35-7.45)
[2018-04-01] VITALS (426 sets, daily range): BP systolic 90–164; BP diastolic 58–97; PULSE 71–95; TEMP 97.2–98.5; O2SAT 88–100
[2018-04-01 05:26] LABS: GRAN % 88.6 % (42.2-75.2); LYMPH # 0.3 (1.2-3.4); LYMPH % 6.8 % (20.0-51.0); MEAN CELL VOLUME 103 fl (80.0-100.0); MEAN CORPUSCULAR HGB CONC 32 g/dl (33.0-37.0); MEAN PLATELET VOLUME 10.4 fl (7.4-10.4); MONO # 0.2 (0.1-0.6); MONO % 4.4 % (1.7-9.3); PLATELET COUNT 144 K/mm3 (130-400); RED BLOOD COUNT 2.69 M/mm3 (4.10-5.30); REDCELL DISTRIBUTION WIDTH-CV 14.1 % (11.5-14.5)
[2018-04-01 05:28] LABS: HEMATOCRIT 27.7 % (37.0-47.0); HEMOGLOBIN 8.8 g/dl (12.5-16.0); MEAN CORPUSCULAR HEMOGLOBIN 33 pg (27.0-31.0)
[2018-04-01 05:41] LABS: CALCIUM 9.1 mg/dL (8.4-10.2); CREATININE, serum 0.3 mg/dL (0.52-1.25); MAGNESIUM 1.5 mg/dL (1.6-2.3); PHOSPHOROUS 2.3 mg/dL (2.5-4.5); POTASSIUM 3.9 mmol/L (3.4-5.0)
[2018-04-01 06:02] LABS: ARTERIAL BLOOD GAS BASE EXCESS 9.1 (-2-2); ARTERIAL BLOOD GAS HCO3 35.4 meq/L (22-26); ARTERIAL BLOOD GAS PCO2 59.3 mmHg (35-45); ARTERIAL BLOOD GAS PO2 94.3 mmHg (80-100); ARTERIAL BLOOD GAS pH 7.39 (7.35-7.45)
[2018-04-02 03:22] VITALS: BP 111/59; PULSE 65; TEMP 98.5
[2018-04-02 08:12] LABS: GRAN # 3.7 (1.4-6.5); GRAN % 87.5 % (42.2-75.2); LYMPH # 0.4 (1.2-3.4); LYMPH % 8.5 % (20.0-51.0); MEAN CELL VOLUME 104 fl (80.0-100.0); MEAN CORPUSCULAR HGB CONC 31 g/dl (33.0-37.0); MEAN PLATELET VOLUME 10.4 fl (7.4-10.4); MONO # 0.2 (0.1-0.6); MONO % 3.5 % (1.7-9.3); PLATELET COUNT 168 K/mm3 (130-400); RED BLOOD COUNT 2.85 M/mm3 (4.10-5.30)
[2018-04-02 08:14] LABS: HEMATOCRIT 29.7 % (37.0-47.0); HEMOGLOBIN 9.2 g/dl (12.5-16.0); MEAN CORPUSCULAR HEMOGLOBIN 32 pg (27.0-31.0)
[2018-04-02 08:18] LABS: ALBUMIN 3.1 gm/dL (3.5-5.0); CALCIUM 9.6 mg/dL (8.4-10.2); CREATININE, serum 0.32 mg/dL (0.52-1.25); PHOSPHOROUS 2.8 mg/dL (2.5-4.5); POTASSIUM 4.2 mmol/L (3.4-5.0)
[2018-04-02 08:49] VITALS: BP 131/73; PULSE 81; TEMP 98
[2018-04-02 11:18] VITALS: BP 143/78; PULSE 72; TEMP 98.5
[2018-04-02 16:28] VITALS: BP 154/76; PULSE 103; TEMP 97.8
[2018-04-02 19:22] VITALS: BP 154/84; PULSE 97; TEMP 97.4
[2018-04-02 23:44] VITALS: BP 113/64; PULSE 64; TEMP 97
[2018-04-03 04:07] VITALS: BP 139/79; PULSE 73; TEMP 97.4
[2018-04-03 06:09] LABS: GRAN % 87.5 % (42.2-75.2); LYMPH # 0.4 (1.2-3.4); LYMPH % 8.1 % (20.0-51.0); MEAN CELL VOLUME 104 fl (80.0-100.0); MEAN CORPUSCULAR HGB CONC 31 g/dl (33.0-37.0); MONO # 0.2 (0.1-0.6); MONO % 3.5 % (1.7-9.3); PLATELET COUNT 182 K/mm3 (130-400); RED BLOOD COUNT 2.97 M/mm3 (4.10-5.30); REDCELL DISTRIBUTION WIDTH-CV 13.9 % (11.5-14.5)
[2018-04-03 06:19] LABS: CALCIUM 9.9 mg/dL (8.4-10.2); CREATININE, serum 0.32 mg/dL (0.52-1.25); MAGNESIUM 1.5 mg/dL (1.6-2.3); POTASSIUM 4.2 mmol/L (3.4-5.0)
[2018-04-03 06:30] LABS: HEMOGLOBIN 9.6 g/dl (12.5-16.0); MEAN CORPUSCULAR HEMOGLOBIN 32 pg (27.0-31.0)
[2018-04-03 06:43] VITALS: BP 153/85; PULSE 87; TEMP 98.7
[2018-04-03] MEDS ORDERED: LEVAQUIN 5500 MG/TA1 PO (10:20)
[2018-04-03] MEDS ORDERED: FIRVANQ25 MG/1 ML PO (10:20)
[2018-04-03] MEDS ORDERED: OMNICEF 300MG300 MG PO (10:22)
[2018-04-03] MEDS ORDERED: RT ADVAIR HFA 1112 G IH (10:23)
[2018-04-03] MEDS ORDERED: MUCINEX1200 MG PO (10:23)
[2018-04-03] MEDS ORDERED: KLONOPIN 0.5MG0.5 MG PO (10:24)
[2018-04-03] MEDS ORDERED: PREDNISONE20 MG PO (10:24)
[2018-04-03 10:56] VITALS: BP 149/90; PULSE 91; TEMP 98.5
[2018-04-03 11:32] VITALS: BP_SYST 5
== END 2018-04-03 13:39 | DRG 193 ==
LOC: COL.ER 00:56 → ICU 02:20 → MEDICAL 04-01 12:41
PROVIDERS: Emergency Medicine; Family Medicine; Hospitalist; Internal Medicine Pulmonary Disease; Nurse Practitioner; Physician Assistant
DX: J18.9 Pneumonia, unspecified organism (principal); E43 Unspecified severe protein-calorie malnutrition; J96.21 Acute and chronic respiratory failure with hypoxia; J96.22 Acute and chronic respiratory failure with hypercapnia; Z68.1 Body mass index [BMI] 19.9 or less, adult; J44.0 Chronic obstructive pulmonary disease with (acute) lower respiratory infection; E87.1 Hypo-osmolality and hyponatremia; C34.02 Malignant neoplasm of left main bronchus; J44.1 Chronic obstructive pulmonary disease with (acute) exacerbation; Z87.891 Personal history of nicotine dependence; I10 Essential (primary) hypertension; G89.29 Other chronic pain; E83.42 Hypomagnesemia; D64.9 Anemia, unspecified; G40.909 Epilepsy, unspecified, not intractable, without status epilepticus
CPT/HCPCS: 99222-AI; 99232-AI; 99233-AI; 99239; J1650; J1885; J2185; J2543; J2920; J2930; J3370; J3475; J7030; J7050; J7060

== ENCOUNTER 2018-04-17 16:43 | Inpatient (IN) | payer MEDICARE, OTHER ==
[~2018-04-17] VITALS: Ht 165.1 cm; Wt 55.0 kg
[~2018-04-17 16:43] MED LIST changes: +ACIDOPHILIS PO; +DEPAKOTE 250MG250 MG PO; +KEPPRA250 MG PO; +KLONOPIN 0.5MG0.5 MG PO; +MIRTAZAPINE7.5 MG PO; +MUCINEX1200 MG PO; +MULTI VITAMINS1 TAB PO; +OXYGEN MC; +RT ADVAIR HFA 1112 G IH
[2018-04-17 17:24] VITALS: BP 115/69; PULSE 114
[2018-04-17 17:43] LABS: BASO % 0.3 % (0.0-2.0); EOS # 0.1 (0.0-0.7); EOS % 1.6 % (0-4.0); GRAN # 6.2 (1.4-6.5); HEMATOCRIT 32.4 % (37.0-47.0); HEMOGLOBIN 10.3 g/dl (12.5-16.0); LYMPH # 0.9 (1.2-3.4); MEAN CELL VOLUME 100 fl (80.0-100.0); MEAN CORPUSCULAR HEMOGLOBIN 32 pg (27.0-31.0); MEAN CORPUSCULAR HGB CONC 32 g/dl (33.0-37.0); MEAN PLATELET VOLUME 10.3 fl (7.4-10.4); MONO # 0.7 (0.1-0.6); MONO % 8.8 % (1.7-9.3); PLATELET COUNT 193 K/mm3 (130-400); RED BLOOD COUNT 3.24 M/mm3 (4.10-5.30); REDCELL DISTRIBUTION WIDTH-CV 13.2 % (11.5-14.5)
[2018-04-17 17:49] LABS: ALBUMIN 3.2 gm/dL (3.5-5.0); BILIRUBIN,TOTAL 0.4 mg/dL (0.0-1.0); CALCIUM 9.7 mg/dL (8.4-10.2); CREATININE, serum 0.35 mg/dL (0.52-1.25); POTASSIUM 3.9 mmol/L (3.4-5.0); TOTAL PROTEIN 6.5 gm/dL (6.4-8.2)
[2018-04-17 17:56] LABS: ARTERIAL BLD GAS O2 SATURATION 90.7 % (92-100); ARTERIAL BLD GAS TCO2 CT 40.6; ARTERIAL BLOOD GAS BASE EXCESS 11.4 (-2-2); ARTERIAL BLOOD GAS HCO3 38.5 meq/L (22-26); ARTERIAL BLOOD GAS PO2 65.4 mmHg (80-100); ARTERIAL BLOOD GAS pH 7.38 (7.35-7.45)
[2018-04-17 18:03] LABS: ARTERIAL BLOOD GAS PCO2 67.2 mmHg (35-45)
[2018-04-17 19:56] VITALS: BP 108/74; PULSE 108; TEMP 98.9
[2018-04-17 23:18] VITALS: BP 94/64; PULSE 114; TEMP 98.5
[2018-04-17 23:47] VITALS: BP 97/64
[2018-04-18] VITALS (8 sets, daily range): BP systolic 88–93; BP diastolic 53–63; PULSE 59–103; TEMP 97.4–98.5
[2018-04-18 05:03] LABS: ARTERIAL BLD GAS O2 SATURATION 94.6 % (92-100); ARTERIAL BLOOD GAS BASE EXCESS 8.4 (-2-2); ARTERIAL BLOOD GAS HCO3 35.9 meq/L (22-26); ARTERIAL BLOOD GAS PO2 87.7 mmHg (80-100); ARTERIAL BLOOD GAS pH 7.34 (7.35-7.45)
[2018-04-18 08:02] LABS: MEAN CELL VOLUME 102 fl (80.0-100.0); MEAN CORPUSCULAR HGB CONC 31 g/dl (33.0-37.0); PLATELET COUNT 178 K/mm3 (130-400); RED BLOOD COUNT 3.01 M/mm3 (4.10-5.30); REDCELL DISTRIBUTION WIDTH-CV 13.2 % (11.5-14.5)
[2018-04-18 08:04] LABS: HEMATOCRIT 30.6 % (37.0-47.0); HEMOGLOBIN 9.6 g/dl (12.5-16.0); MEAN CORPUSCULAR HEMOGLOBIN 32 pg (27.0-31.0)
[2018-04-18 08:17] LABS: CALCIUM 9.4 mg/dL (8.4-10.2); CREATININE, serum 0.28 mg/dL (0.52-1.25); POTASSIUM 3.7 mmol/L (3.4-5.0)
[2018-04-18 08:43] LABS: BAND 10 % (0-10); LYMPHOCYTE 5 % (20.0-51.0); NEUTROPHILS 85 % (42.0-75.2); PLATELET ESTIMATE NORMAL (NORMAL)
[2018-04-18 12:15] LABS: ARTERIAL BLD GAS O2 SATURATION 94.4 % (92-100); ARTERIAL BLD GAS TCO2 CT 38.7; ARTERIAL BLOOD GAS BASE EXCESS 9.1 (-2-2); ARTERIAL BLOOD GAS HCO3 36.6 meq/L (22-26); ARTERIAL BLOOD GAS PO2 82.8 mmHg (80-100); ARTERIAL BLOOD GAS pH 7.35 (7.35-7.45)
[2018-04-18 12:16] LABS: ARTERIAL BLOOD GAS PCO2 68.1 mmHg (35-45)
[2018-04-19 03:21] VITALS: BP 90/52; PULSE 75; TEMP 97.3
[2018-04-19 06:43] LABS: MEAN CELL VOLUME 103 fl (80.0-100.0); MEAN CORPUSCULAR HGB CONC 31 g/dl (33.0-37.0); MEAN PLATELET VOLUME 10.4 fl (7.4-10.4); PLATELET COUNT 177 K/mm3 (130-400); RED BLOOD COUNT 2.51 M/mm3 (4.10-5.30); REDCELL DISTRIBUTION WIDTH-CV 13.2 % (11.5-14.5)
[2018-04-19 06:54] LABS: HEMATOCRIT 25.9 % (37.0-47.0); MEAN CORPUSCULAR HEMOGLOBIN 32 pg (27.0-31.0)
[2018-04-19 06:59] LABS: CALCIUM 9.1 mg/dL (8.4-10.2); CREATININE, serum 0.31 mg/dL (0.52-1.25)
[2018-04-19 07:00] VITALS: BP 106/56; PULSE 86; TEMP 98.4
[2018-04-19 07:28] LABS: BAND 11 % (0-10); LYMPHOCYTE 1 % (20.0-51.0); NEUTROPHILS 85 % (42.0-75.2); PLATELET ESTIMATE NORMAL (NORMAL)
[2018-04-19 07:29] LABS: HYPOCHROMIA 2+
[2018-04-19 10:33] VITALS: BP 117/69; PULSE 105; TEMP 98.5
[2018-04-19 17:04] VITALS: BP 133/75; PULSE 93; TEMP 98.2
[2018-04-19 21:39] VITALS: BP 104/64; PULSE 66; TEMP 98
[2018-04-20 00:28] VITALS: BP 106/65; PULSE 59
[2018-04-20 06:00] LABS: MEAN CELL VOLUME 103 fl (80.0-100.0); MEAN CORPUSCULAR HGB CONC 31 g/dl (33.0-37.0); MEAN PLATELET VOLUME 10.4 fl (7.4-10.4); PLATELET COUNT 179 K/mm3 (130-400); RED BLOOD COUNT 2.64 M/mm3 (4.10-5.30); REDCELL DISTRIBUTION WIDTH-CV 13.1 % (11.5-14.5)
[2018-04-20 06:01] LABS: HEMATOCRIT 27.1 % (37.0-47.0); HEMOGLOBIN 8.4 g/dl (12.5-16.0); MEAN CORPUSCULAR HEMOGLOBIN 32 pg (27.0-31.0)
[2018-04-20 06:18] LABS: CALCIUM 9.1 mg/dL (8.4-10.2); CREATININE, serum 0.32 mg/dL (0.52-1.25); POTASSIUM 3.8 mmol/L (3.4-5.0)
[2018-04-20 07:50] LABS: BAND 6 % (0-10); LYMPHOCYTE 6 % (20.0-51.0); NEUTROPHILS 88 % (42.0-75.2); PLATELET ESTIMATE NORMAL (NORMAL)
[2018-04-20 07:51] LABS: HYPOCHROMIA 2+
[2018-04-20 08:48] VITALS: BP 136/66; PULSE 92; TEMP 99
[2018-04-20 11:47] VITALS: BP 131/67; PULSE 94; TEMP 98.8
[2018-04-20 16:08] VITALS: BP 139/71; PULSE 95; TEMP 97.9
[2018-04-20 19:52] VITALS: BP 145/70; PULSE 98; TEMP 97.8
[2018-04-20 23:48] VITALS: BP 119/64; PULSE 85; TEMP 98.5
[2018-04-21 04:30] VITALS: BP 131/91; PULSE 89; TEMP 98.3
[2018-04-21 08:00] VITALS: BP 139/69; PULSE 60; TEMP 98.1
[2018-04-21 13:20] VITALS: BP 151/85; PULSE 98; TEMP 98.1
[2018-04-21] MEDS ORDERED: VANCOCIN H125 MG/CAP PO (13:20)
[2018-04-21] MEDS ORDERED: LEVAQUIN 5500 MG/TA1 PO (13:20)
[2018-04-21] MEDS ORDERED: IPRATROPIUM BROM3 M1 IH (13:21)
[2018-04-21] MEDS ORDERED: KLONOPIN 0.5MG0.5 MG PO (13:21)
[2018-04-21] MEDS ORDERED: DEPAKOTE 250MG250 MG PO (13:22)
[2018-04-21] MEDS ORDERED: KEPPRA250 MG PO (13:22)
[2018-04-21] MEDS ORDERED: MIRTAZAPINE7.5 MG PO (13:23)
[2018-04-21] MEDS ORDERED: ATIVAN 1MG T1 MG/TAB PO (13:23)
[2018-04-21] MEDS ORDERED: RISPERDAL 1M1 MG/TAB PO (13:23)
[2018-04-21] MEDS ORDERED: RT ADVAIR HFA 1112 G IH (13:23)
[2018-04-21] MEDS ORDERED: PROBIOTIC ACID1 EAC3 PO (13:24)
[2018-04-21 15:30] VITALS: BP 151/85; PULSE 98; TEMP 98.1
== END 2018-04-21 18:30 | disposition hospice, home (50) | DRG 193 ==
LOC: MEDICAL 16:43
PROVIDERS: Internal Medicine Critical Care Medicine; Nurse Practitioner; Nurse Practitioner Family; Physician Assistant
DX: J18.9 Pneumonia, unspecified organism (principal); J96.21 Acute and chronic respiratory failure with hypoxia; J96.22 Acute and chronic respiratory failure with hypercapnia; J44.0 Chronic obstructive pulmonary disease with (acute) lower respiratory infection; Z66 Do not resuscitate; Z51.5 Encounter for palliative care; E44.0 Moderate protein-calorie malnutrition; Z68.1 Body mass index [BMI] 19.9 or less, adult; C34.02 Malignant neoplasm of left main bronchus; I10 Essential (primary) hypertension; Z87.891 Personal history of nicotine dependence; G89.29 Other chronic pain
CPT/HCPCS: 99223-AI; 99232-AI; 99233-AI; A4216; J1120; J1650; J2185; J2930; J3370; J7030; J7050; J7512; Q9967